=== PATIENT | male | born 1965 | race Caucasian/White ===

== ENCOUNTER 2017-12-22 11:27 | Emergency (ER) | payer BC ==
[~2017-12-22] VITALS: Ht 185.4 cm; Wt 86.2 kg
[2017-12-22 11:41] VITALS: BP_SYST 159
[2017-12-22] MEDS ORDERED: LIDOCAINE PF 1%, 20 MG/2 ML AMP INJ ONE (11:45)
[2017-12-22] MEDS ORDERED: LIDOCAINE 1%, 20 ML MDV 20 ML ONE (11:49)
[2017-12-22] MEDS: KETOROLAC TROMETHAMINE 60 MG/2 ML VIAL IM ONE (12:18)
[2017-12-22] MEDS: DIPH-TET-PERTUS Vaccine 0.5 ML VIAL (ADACEL) I.M. ONE (13:00)
[2017-12-22 14:10] VITALS: BP_SYST 128
== END 2017-12-22 14:10 | disposition home or self-care (01) ==
LOC: SED 11:27
DX: S61.235A Puncture wound without foreign body of left ring finger without damage to nail, initial encounter (principal); R03.0 Elevated blood-pressure reading, without diagnosis of hypertension; W22.8XXA Striking against or struck by other objects, initial encounter; Y93.89 Activity, other specified; Y92.89 Other specified places as the place of occurrence of the external cause; Y99.8 Other external cause status
CPT/HCPCS: 73140; 90471; 90715; 96372; 99284; J1885; J2001